=== PATIENT | female | born 1950 | race Caucasian/White ===

== ENCOUNTER → 2019-03-18 | Outpatient (CLI) | payer MEDICARE ==
--- NOTE | 2019-03-18 12:51 | FL ---
EXAMINATION TYPE: FL barium swallow DATE OF EXAM: 03/18/2019 CLINICAL HISTORY: Lower esophageal pain with history of hiatal hernia repair. Concern for recurrent h ernia. TECHNIQUE: A single contrast esophagram is performed utilizing air and barium. A total of 1.35 markell miguel of fluoroscopic time was utilized during procedure. 38 fluoroscopic images were saved. COMPARISON: None FINDINGS: The esophagus shows normal motility and emptying into the stomach. No evidence of hiatal h ernia or stricture noted. Very minimal gastroesophageal reflux was seen during real time performance of this study. IMPRESSION: No recurrent hiatal hernia or stricture. Very minimal gastroesophageal reflux.
== END | disposition home or self-care (01) ==
LOC: RADUSWWP 10:39
PROVIDERS: ATTEND Surgery Plastic and Reconstructive Surgery
DX: K21.9 Gastro-esophageal reflux disease without esophagitis (principal); Z88.8 Allergy status to other drugs, medicaments and biological substances; Z91.09 Other allergy status, other than to drugs and biological substances
CPT/HCPCS: 74220; Q9967